=== PATIENT | female | born 1980 ===

== ENCOUNTER 2017-03-04 18:19 | Emergency (ER) | payer OTHER ==
[2017-03-04 18:48] VITALS: BP 140/77; PULSE 80; RESP 16; TEMP 98.1; O2SAT 99
--- NOTE | 2017-03-04 19:59 | C.PDOC ---
History Of Present Illness 36 year old female with a Hx of multiple sclerosis presents to the ER with a complaint of a tingling sensation to the left lateral leg, from the knee to mid thigh since November. Patient is concerned that it may be related to her multiple sclerosis; denies recent injury, rash, fever, bowel/bladder incontinence, weakness, or numbness. Time Seen by Provider: 03/04/17 19:04 Chief Complaint (Nursing): Lower Extremity Problem/Injury History Per: Patient History/Exam Limitations: no limitations Onset/Duration Of Symptoms: Days Current Symptoms Are (Timing): Still Present Recent travel outside of the [place]: No Past Medical History Reviewed: Historical Data, Nursing Documentation, Vital Signs Vital Signs: Last Vital Signs Temp 98.1 F 03/04/17 18:45 Pulse 80 03/04/17 18:45 Resp 16 03/04/17 18:45 BP 140/77 03/04/17 18:45 Pulse Ox 99 03/05/17 00:18 - Medical History PMH: Multiple Sclerosis Surgical History: No Surg Hx Family History: States: Unknown Family Hx - Social History Hx Alcohol Use: No Hx Substance Use: No - Immunization History Hx Tetanus Toxoid Vaccination: No Hx Influenza Vaccination: No Hx Pneumococcal Vaccination: No Review Of Systems Except As Marked, All Systems Reviewed And Found Negative. Constitutional: Negative for: Fever, Chills Skin: Negative for: Rash Neurological: Positive for: Other (Tingling). Negative for: Weakness, Numbness Physical Exam - Physical Exam Appears: Non-toxic, No Acute Distress Skin: Normal Color, Warm, Dry Head: Atraumatic, Normacephalic Eye(s): bilateral: Normal Inspection, PERRL, EOMI Oral Mucosa: Moist Neck: Normal ROM Chest: Symmetrical, No Tenderness Cardiovascular: Rhythm Regular Respiratory: Normal Breath Sounds Back: Normal Inspection, No CVA Tenderness, No Vertebral Tenderness, No Paraspinal Tenderness Extremity: Normal ROM (x4), No Tenderness, No Calf Tenderness, No Deformity, No Swelling Extremity: Bilateral: Atraumatic, Normal Color And Temperature, Other (Equal sensation) Pulses: Left Femoral: Normal, Right Femoral: Normal, Left Dorsalis Pedis: Normal , Right Dorsalis Pedis: Normal Neurological/Psych: Oriented x3, Normal Speech, Normal Cognition, Normal Motor, Normal Sensation Gait: Steady ED Course And Treatment O2 Sat by Pulse Oximetry: 99 (Room air) Pulse Ox Interpretation: Normal Medical Decision Making Medical Decision Making: Patient's physical exam was normal with no indication for further diagnostic tests; will discharge and advised to follow up with PMD. Disposition - Disposition Referrals: Zaid Aviles MD [Staff Provider] - Disposition: HOME/ ROUTINE Disposition Time: 19:43 Condition: GOOD Additional Instructions: Follow up with the Neurologist within 1-2 days. Return if worsened. Instructions: Paresthesia (ED) Forms: [employer] (Greenlandic) - Clinical Impression Clinical Impression: Paresthesia, Multiple sclerosis - Scribe Statement The provider has reviewed the documentation as recorded by the Scribe Sebastian Drake All medical record entries made by the Scribe were at my direction and personally dictated by me. I have reviewed the chart and agree that the record accurately reflects my personal performance of the history, physical exam, medical decision making, and the department course for this patient. I have also personally directed, reviewed, and agree with the discharge instructions and disposition.
== END 2017-03-04 20:01 | disposition home or self-care (01) ==
LOC: C.ER 18:19
DX: G35 Multiple sclerosis (principal); R20.2 Paresthesia of skin